=== PATIENT | male | born 1985 | race Caucasian/White ===

== ENCOUNTER 2024-12-19 13:50 | Day surgery (SDC) | payer OTHER ==
[~2024-12-19] VITALS: Ht 172.7 cm; Wt 67.7 kg
[~2024-12-19 13:50] MED LIST: Atropine Sulfate 0.1 MG/ML 10ML SYR ONE; Glycopyrrolate 0.2 MG/ML 1MLVIAL ONE; Lactated Ringer's 1,000 ML IV ONE; Lidocaine 2% 5 ML SDV ONE; Lidocaine HCl/Pf 1% 5 ML VIAL ONE; Methylene Blue 1% 100 MG/10 ML VIAL ONE; Ondansetron HCl 2 MG / ML 2ML Vial ONE; ePHEDrine Sulfate 50 MG/ML 1ML Injection ONE; propofoL 50 ML IV ONE
[2024-12-19] MEDS ORDERED: Lactated Ringer's 1,000 ML IV ONE (14:58)
--- NOTE | 2024-12-19 15:01 | NUR ---
12/19/24 1501 TABBY TILLEY VERY POOR DENTAL HYGENE:SEVERAL MISSING,CHIPPED AND DECAYING TEETH UPPER AND LOWER W GINGIVITIS
[2024-12-19] MEDS ORDERED: propofoL 50 ML IV ONE (15:04)
[2024-12-19] MEDS ORDERED: Midazolam HCL 1 MG/ML 5MLVIAL ONE (15:18)
--- NOTE | 2024-12-19 16:12 | NUR ---
12/19/24 1612 TABBY TILLEY IV DC POSTOP NO ISSUES.
== END 2024-12-19 16:12 | disposition home or self-care (01) ==
LOC: ORSCSDS 13:50
PROVIDERS: Internal Medicine Gastroenterology
PROC: 0DBK8ZX Excision of Ascending Colon, Via Natural or Artificial Opening Endoscopic, Diagnostic (ICD-10-PCS; principal; 2024-12-19 15:15)
DX: K62.5 Hemorrhage of anus and rectum (principal); R93.3 Abnormal findings on diagnostic imaging of other parts of digestive tract; D12.2 Benign neoplasm of ascending colon; R10.32 Left lower quadrant pain; F17.210 Nicotine dependence, cigarettes, uncomplicated; Z83.719 Family history of colon polyps, unspecified
CPT/HCPCS: 88305; J0461; J2003; J2250; J2405; J2704; J7120; Q9968